=== PATIENT | female | born 1985 | race Hispanic/Latino ===

== ENCOUNTER → 2022-09-01 06:37 | Outpatient (CLI) | payer OTHER, SELFPAY ==
--- NOTE | 2022-09-01 06:40 | DI.US.S_ITS ---
PROCEDURE: US OB <= 14 WEEKS FETUS INDICATIONS: DATING OUTSIDE/PRIOR DATING DATA: Last menstrual period (LMP): 07/03/2022 LMP-based estimated date of delivery (ROSA ELENA): 04/09/2023. First dating scan (date and location): 09/01/2022. Estimated date of delivery (ROSA ELENA) from first dating scan: 04/13/2023 Working ROSA ELENA is 04/09/2023. TECHNIQUE: Real-time scanning was performed of the fetus and maternal pelvic organs, with image documentation. Endovaginal scanning was also performed to better visualize the fetus and maternal ovaries. COMPARISON: None. FINDINGS: Embryo: [place]-rump length measures 1.6 cm corresponding to 8 weeks 0 days. Prominent rhombencephalon is noted. Heart rate: 169 Maternal organs: Ovaries within normal limits, with left corpus luteal cyst. IMPRESSION: 1. 8 week 0 day single living IUP with prominent rhombencephalon. Short-term follow-up ultrasound is recommended to assess for temporal change. We strive to produce accurate, complete, and clear reports of imaging services. To assist us in improving patient care, this report was composed using standard report templates and voice recognition software. Therefore, it may contain abnormal punctuation, insertions and/or omissions. Occasional wrong-word or sound-alike substitutions may occur. Though we review the report and make efforts to correct it, we do recommend that the report be read carefully in proper context to recognize any text inaccuracies. Dictated by: Arben Rosado RRJohn Interpreted: Jas Avila MD on 09/01/2022 at 16:18 Transcribed by: MUMTAZ on 09/01/2022 at 16:20 Approved by: Jas Avila M.D. on 09/01/2022 at 16:28
== END ==
PROVIDERS: Referring Provider Specialist; Visit Provider Specialist
DX: Z36.87 Encounter for antenatal screening for uncertain dates (principal); Z3A.08 8 weeks gestation of pregnancy
CPT/HCPCS: 76801; 76817

== ENCOUNTER → 2022-09-11 12:09 | Outpatient (CLI) | payer OTHER, SELFPAY ==
--- NOTE | 2022-09-11 12:10 | DI.US.S_ITS ---
PROCEDURE: US OB <= 14 WEEKS FETUS INDICATIONS: FOLLOW UP POSSIBLE ABNORMALITY OUTSIDE/PRIOR DATING DATA: Last menstrual period (LMP): 07/03/2022. LMP-based estimated date of delivery (ROSA ELENA): 04/09/2023. First dating scan (date and location): 09/01/2022. Estimated date of delivery (ROSA ELENA) from first dating scan: 04/13/2023. TECHNIQUE: Real-time scanning was performed of the fetus and maternal pelvic organs, with image documentation. Endovaginal scanning was also performed to better visualize the fetus and maternal ovaries. COMPARISON: [facility], , OB <= 14 WEEKS FETUS, 09/01/2022, 7:10. FINDINGS: Embryo: [place]-rump length of 2.5 cm corresponding to an ultrasound gestational age of 9 weeks 2 days. The rhombencephalon appears prominent as before Heart rate: 165 beats per minute Small right perigestational hemorrhage redemonstrated. Maternal organs: Ovaries are unremarkable. IMPRESSION: Single living intrauterine . rhombencephalon appears prominent as before. Developing intracranial anomaly not excludable. Continued attention on follow-up is recommended. We strive to produce accurate, complete, and clear reports of imaging services. To assist us in improving patient care, this report was composed using standard report templates and voice recognition software. Therefore, it may contain abnormal punctuation, insertions and/or omissions. Occasional wrong-word or sound-alike substitutions may occur. Though we review the report and make efforts to correct it, we do recommend that the report be read carefully in proper context to recognize any text inaccuracies. Dictated by: Guillaume Elizabeth M.D. on 09/11/2022 at 14:17 Approved by: Guillaume Elizabeth M.D. on 09/11/2022 at 14:31
== END ==
PROVIDERS: Referring Provider Specialist; Visit Provider Specialist
DX: O35.9XX0 Maternal care for (suspected) fetal abnormality and damage, unspecified, not applicable or unspecified (principal); Z3A.09 9 weeks gestation of pregnancy
CPT/HCPCS: 76801; 76817

== ENCOUNTER → 2022-09-29 09:53 | Outpatient (CLI) | payer OTHER, SELFPAY ==
[2022-09-29 10:21] LABS: Specimen Label NATERA
[2022-09-29 10:38] LABS: Add Manual Diff / Slide Review NO; Basophils Absolute Auto 0 /uL (0-100); Basophils Percent Auto 0.6 % (0-2); Eosinophils Absolute Auto 0 /uL (0-450); Eosinophils Percent Auto 0.6 % (2-4); Hematocrit 35.1 % (36-46); Hemoglobin 12.3 g/dL (12.0-16.0); Lymphocytes Absolute Auto 1400 /uL (1100-4500); Lymphocytes Percent Auto 17.5 % (25-40); Mean Corpuscular Hemoglobin 30.3 PG (26-34); Mean Corpuscular Volume 86.5 fL (80-100); Monocytes Absolute Auto 600 /uL (0-900); Monocytes Percent Auto 7.7 % (3-14); Neutrophils Absolute Auto 5800 /uL (1500-7000); Neutrophils Percent Auto 73.6 % (50-75); Platelet Count 252 X10^3/uL (150-400); Red Blood Cell Count 4.06 X10^6/uL (4.0-5.2); White Blood Cell Count 7.9 X10^3/uL (4.5-11.0)
[2022-09-29 11:31] LABS: Hepatitis B Surface Antigen NEGATIVE s/c (NEGATIVE); Rubella Antibody IgG 85.8 IU/mL (>15)
[2022-09-29 11:48] LABS: HIV 1 & 2 Ab/Ag 4th Gen Combo NEGATIVE (NEGATIVE); Hep C Virus Ab w/Reflex Quant NEGATIVE s/c (NEGATIVE)
[2022-09-30 02:09] LABS: RPR Screen Non Reactive (Non Reactive)
[2022-09-30 09:50] LABS: Varicella IgG Antibody 632 index (Immune >165)
== END ==
PROVIDERS: Referring Provider Specialist; Visit Provider Specialist
DX: Z34.81 Encounter for supervision of other normal pregnancy, first trimester (principal); Z3A.12 12 weeks gestation of pregnancy
CPT/HCPCS: 36415; 80055; 86787; 86803; 86850; 86900; 86901; 87086; 87389

== ENCOUNTER → 2023-01-02 07:57 | Outpatient (CLI) | payer OTHER, SELFPAY ==
[2023-01-02 10:23] LABS: Hematocrit 32.5 % (36-46); Hemoglobin 11.3 g/dL (12.0-16.0)
[2023-01-02 10:43] LABS: GTT (PREG) 1 Hour PP 50gm Dose 154 mg/dL (76-139)
== END ==
PROVIDERS: Referring Provider Student in an Organized Health Care Education/Training Program; Visit Provider Student in an Organized Health Care Education/Training Program
DX: Z34.90 Encounter for supervision of normal pregnancy, unspecified, unspecified trimester (principal); Z3A.24 24 weeks gestation of pregnancy
CPT/HCPCS: 36415; 82950; 85014; 85018

== ENCOUNTER → 2023-01-17 09:54 | Outpatient (CLI) | payer OTHER, SELFPAY ==
[2023-01-17 10:56] LABS: Glucose Fasting Gestational 68 mg/dL (76-95)
[2023-01-17 11:50] LABS: Glucose 1 Hour Gest 103 mg/dL (76-180)
[2023-01-17 14:12] LABS: Glucose 2 Hour Gest 200 mg/dL (76-155)
[2023-01-17 14:14] LABS: Glucose Tol Interp,Gestational INTERPRETATION
[2023-01-17 14:20] LABS: Glucose 3 Hour Gest 81 mg/dL (76-140)
== END ==
PROVIDERS: Family Medicine; PCP Student in an Organized Health Care Education/Training Program; Referring Provider Student in an Organized Health Care Education/Training Program; Visit Provider Student in an Organized Health Care Education/Training Program
DX: Z34.80 Encounter for supervision of other normal pregnancy, unspecified trimester (principal); R73.9 Hyperglycemia, unspecified
CPT/HCPCS: 36415; 82951; 82952

== ENCOUNTER → 2023-03-13 15:09 | Outpatient (CLI) | payer OTHER, SELFPAY ==
[2023-03-14 12:06] LABS: Strep Grp B PCR NEG for Grp B Strep
== END ==
PROVIDERS: PCP Student in an Organized Health Care Education/Training Program; Visit Provider Student in an Organized Health Care Education/Training Program
DX: Z34.80 Encounter for supervision of other normal pregnancy, unspecified trimester (principal)
CPT/HCPCS: 87653

== ENCOUNTER 2023-04-02 07:34 | Inpatient (IN) | payer OTHER, SELFPAY ==
[2023-04-02 08:36] LABS: Add Manual Diff / Slide Review NO; Basophils Absolute Auto 0 /uL (0-100); Basophils Percent Auto 0.3 % (0-2); Eosinophils Absolute Auto 100 /uL (0-450); Eosinophils Percent Auto 0.6 % (2-4); Hematocrit 32.3 % (36-46); Hemoglobin 10.6 g/dL (12.0-16.0); Lymphocytes Absolute Auto 1800 /uL (1100-4500); Lymphocytes Percent Auto 16.4 % (25-40); Mean Corpuscular HGB Conc 32.9 % (30-36); Mean Corpuscular Hemoglobin 26.1 PG (26-34); Mean Corpuscular Volume 79.3 fL (80-100); Monocytes Absolute Auto 600 /uL (0-900); Monocytes Percent Auto 5.7 % (3-14); Neutrophils Absolute Auto 8700 /uL (1500-7000); Platelet Count 244 X10^3/uL (150-400); Red Blood Cell Count 4.07 X10^6/uL (4.0-5.2); Red Cell Distribution Width 15.5 % (11.6-14.8); White Blood Cell Count 11.3 X10^3/uL (4.5-11.0)
[2023-04-02] MEDS: OXYTOCIN PREMIX 30 UNIT/500 ML PLAST..BAG IV (08:53)
[2023-04-02] MEDS: LACTATED RINGERS 1,000 ML 100 ML IV ×3 (08:54→18:56)
[2023-04-02 09:37] VITALS: BP 138/77
--- NOTE | 2023-04-02 10:26 | P.HPOB_ITS ---
OB HPI Date/Time Date of admission: 04/02/23 Date Patient Seen: 04/02/23 History of Present Condition Chief complaint: induction ROSA ELENA Calculator 2 Estimated Delivery Date Method Current WG Current Estimate 04/09/23 LMP (Certain) 39w 0d Other Estimates 04/13/23 Ultrasound #1 38w 3d 04/14/23 Ultrasound #2 38w 2d care: good care Dating criteria OB: LMP confirmed by 1st trimester US Ultrasounds: abnormal US findings Abnormal ultrasound findings: right atrial enlargement, with subsequent normal echocardiogram Obstetrical complications: other (AMA, abnormal sex chromosomes) Indications Indication for induction OB: other Other reason(s) for admission: AMA, abnormal sex chromosomes Preadmission Labs Last OB Lab Results: 2 Blood Type O Positive 04/02/23 08:00 Antibody Screen Negative 04/02/23 08:00 Hematocrit 32.3 % (36-46) L 04/02/23 08:00 Hemoglobin 10.6 g/dL (12.0-16.0) L 04/02/23 08:00 Hepatitis B Surface Antigen Negative s/c (NEGATIVE) 09/29/22 10 :10 Hepatitis C Antibody Negative s/c (NEGATIVE) 09/29/22 10:10 Rubella Antibody 85.8 IU/mL (>15) 09/29/22 10:10 Varicella-Zoster IgG Antibody 632 index (Immune >165) 09/29/22 10:10 Glucose 1 Hour 154 mg/dL (76-139) H 01/02/23 09:00 Group B Streptococcus (PCR) Neg for grp b strep 03/13/23 15:09 Glucose Tolerance Testin hr -: Chlamydia screen: negative and Gonorrhea screen: negative Genetic Screens: Cell-free DNA: Abnormal (abnormal sex chromosomes ) Prior (ies) Past Pregnancies Del. Date GA/Weeks Labor Lgth Wt Sex Route Outcome Anesthesia Place Delv Breastfeed Preg Comp Name 09/09/08 11 spontaneous 08/13/11 40.1 6 6 lb 2 oz Female vaginal live - full ter m epidural [place], [place] 4 months none Mandy 09/09/16 40.4 5 9 lb 2 oz Male vacuum vaginal live - full term epidural [place], [place] 2 years oligohydramni os [place] Delivery Date: 09/09/08 Last Updated by: Ruby Sandra RN required D&C for retained products Evaluation Evaluation Baseline heart rate: 145 Variability: Moderate (11-25) monitor accelerations: Present Monitor Decelerations: Absent Category of Tracing: Reactive Status: Category l Dilation (cm): 1 Effacement (%): 80 Dilation: 1-2 cm Effacement: >/=80% station: -2 Position of cervix: posterior Consistency: soft Cuevas score: 7 Non-invasive Membranes Rupture Test: negative [facility] Medical History (Updated 09/04/22 @ 08:25 by Ruby Snadra RN) Migraine with aura Surgical History (Updated 09/04/22 @ 08:26 by Ruby Sandra RN) [place] teeth extracted (~2020) History of dilation and curettage (~2008) History of appendectomy (~2006) Family History (Updated 09/04/22 @ 08:29 by Ruby Sandra RN) Mother T-cell lymphoma Fibrocystic breast changes Family/Other Hypertension Father Family estrangement Grandmother Dementia Heart disease Grandfather No problems noted. Social History marital status: number of children: 2 household members: spouse and children lives independently: Yes caregiver/support person: Yes housing: house pets and animals: Yes (1 dog) education level: high school occupational status: employed current occupational exposures/hazards: No special sona needs: No travel history: recent ([place]) seatbelt use: always working smoke detector in home: Yes fire extinguisher in home: Yes carbon monox detector in home: Yes firearms in home: No do you feel safe at home: Yes Smoking Status: Never smoker second hand exposure: No alcohol intake: former (1-2/week when not ) substance use type: does not use during the past year weight has: remained stable well-balanced diet: about half the time daily servings fruits/ve-4 caffeine: Yes (AM cup of coffee) Type(s) of exercise: walking frequency: daily duration: 30-45 minutes/day Meds Home Medications and Allergies Home Medications Medication Instructions Recorded Confirmed Type [id number] 400 mcg-om3 35 mg-dha 25 tab PO 09/04/22 03/27/23 History mg-epa 5 mg-fish oil chewable tablet vitamin#30 30 mg iron-10 1 cap PO DAILY #90 caps 11/01/22 04/02/23 Rx mg iron-folic acid 1 mg-omg3 capsule Allergies Allergy/AdvReac Type Severity Reaction Status Date / Time No Known Drug Allergies Allergy Unverified 03/27/23 10:49 Review of Systems Review of Systems ROS: Yes All systems reviewed with the patient and are negative except as otherwise documented Objective Labs 04/02/23 08:00 Labs: Laboratory Results - last 24 hr 04/02/23 08:00 WBC 11.3 H RBC 4.07 Hgb 10.6 L Hct 32.3 L MCV 79.3 L MCH 26.1 MCHC 32.9 RDW 15.5 H Plt Count 244 Neut % (Auto) 77.0 H Lymph % (Auto) 16.4 L [place] % (Auto) 5.7 Eos % (Auto) 0.6 L Baso % (Auto) 0.3 Neut # (Auto) 8700 H Lymph # (Auto) 1800 [place] # (Auto) 600 Eos # (Auto) 100 Baso # (Auto) 0 Blood Type O Positive Antibody Screen Negative Assessment and Plan Assessment and Plan Assessment and Plan narrative: 37 yo here for IOL for AMA. complicated by abnormal sex chromosomes on cFDNA testing and possible enlarged atrium. Met with [facility]. echo normal after possible enlarged atrium. GBS negative. -IOL with pitocin - cord blood collection for karyotype recommended; if abnormal will need referral to Disorders of Sexual Development (DSD) [facility] at [facility] -obtain 3-5 cc blood in lavender (EDTA) tube, label with Baby's Name and Hospital #, send to reference lab ([facility]) for karyotype (aka constitutional karyotype, routine karyotype, peripheral blood karyotype) -can fax results to Crystal Perez MS, [facility], Fax:
--- NOTE | 2023-04-02 13:13 | PM.OBPNLAB ---
Date/Time Date Patient Seen: 04/02/23 Time Patient Seen: 12:15 Pain Control Pain control: tolerating well Pelvic Exam Dilation (cm): 2 Effacement (%): 80 station: -2 Amniotic membrane status: Intact Contractions Contractions on admission: none Monitor mode: External Pitocin rate (mU/min): 14 Contraction frequency (min): 2 Contraction duration (min): 1 Contraction pattern: Regular Contraction intensity: Moderate Status status: Category l Heart Rate Baseline: 145 Monitor Accelerations: Present Monitor Decelerations: Absent Monitor Variability: Moderate Assessment and Plan Assessment: induction ongoing Plan: continuous present management
--- NOTE | 2023-04-02 17:25 | PM.OBPNLAB ---
Date/Time Date Patient Seen: 04/02/23 Time Patient Seen: 17:00 Pain Control Pain control: tolerating well Comments: Planning for epidural now Pelvic Exam Dilation (cm): 6 Effacement (%): 100 station: -2 Amniotic membrane status: Ruptured Comments: AROM at last check at 3pm. Contractions Monitor mode: External Pitocin rate (mU/min): 18 Contraction frequency (min): 2 Contraction pattern: Regular Contraction intensity: Moderate Status status: Category l Monitor Accelerations: Present Monitor Decelerations: Early Monitor Variability: Moderate Assessment and Plan Assessment: induction ongoing Plan: continuous present management Comments: anticipate in next few hours getting epidural now
--- NOTE | 2023-04-02 18:34 | PM.OBPNLAB ---
Date/Time Date Patient Seen: 04/02/23 Time Patient Seen: 18:30 Pain Control Pain control: tolerating well and epidural Pelvic Exam Dilation (cm): 8 Effacement (%): 100 station: -1 Amniotic membrane status: Ruptured Contractions Monitor mode: External Contraction frequency (min): 2 Contraction pattern: Regular Contraction intensity: Moderate Status status: Category ll Heart Rate Baseline: 145 Monitor Accelerations: Present Monitor Decelerations: Late Monitor Variability: Moderate Assessment and Plan Assessment: induction ongoing Plan: continuous present management Comments: Called to bedside for category 2 tracing, moderate variability with late decelerations. Anesthesia at bedside, ephedrine given for hypotension. Fluid bolus given, oxygen on patient, position changes initiated, pitocin discontinued. Good recovery to category 1 tracing. SVE 8/100/-1. -plan for
--- NOTE | 2023-04-02 18:35 | PM.AN.REGBLK ---
Regional Block Pre-procedure Procedure: Continuous Lumbar Epidural for L&D Attending OB provider: Kimberly Mcgrath PMH/ROS narrative: 39W 37yo female with history of 1 miscarriage s/p D&C. Hx: No personal or family history of anesthesia problems. PSH/Anesthesia history narrative: D&C, [place] ASA Class: II Labs: Hct 32.3 % (36-46) L 04/02/23 08:00 Plt Count 244 X10^3/uL (150-400) 04/02/23 08:00 Medications: Current Medications Generic Name Dose Route Start Last Admin Trade Name Freq PRN Reason Stop Dose Admin Calcium Carbonate 1,000 mg 04/02/23 08:02 Calcium Carbonate 500 Mg Tab PO Q4HR PRN Dyspepsia Carboprost Tromethamine 250 mcg 04/02/23 08:02 Carboprost 250 Mcg/Ml Ampul IM Q90M PRN Bleeding Diphenhydramine HCl 25 mg 04/02/23 18:07 Diphenhydramine 50 Mg/Ml Vial IV Q10M PRN Pruritis Ephedrine Sulfate 5 mg 04/02/23 18:07 Ephedrine 50 Mg/Ml Vial IV Q5M PRN Blood pressure decrease more than 20% of baseline. Fentanyl 50 mcg 04/02/23 08:02 Fentanyl 100 Mcg/2 Ml Inj IV Q1H PRN Pain, Moderate (4-6) Oxytocin/Lactated Ringer's 30 unit in 500 mls @ 200 mls/hr 04/02/23 08:02 Oxytocin Premix IV CONT PRN Bleeding Protocol Tranexamic Acid 1,000 mg/ 100 mls @ 200 mls/hr 04/02/23 08:02 Sodium Chloride IV NOW PRN Bleeding Lactated Ringer's 1,000 mls @ 100 mls/hr 04/02/23 08:15 04/02/23 08:54 Lactated Ringers IV 100 mls/hr CONT SAMI Administration Lactated Ringer's 1,000 mls @ 100 mls/hr 04/02/23 08:15 Lactated Ringers IV CONT SAMI Oxytocin/Lactated Ringer's 30 unit in 500 mls @ 2 mls/hr 04/02/23 09:00 04/02/23 08:53 Oxytocin Premix IV 2 milliunit/min TITRATE SAMI 2 mls/hr Administration Protocol 2 MILLIUNIT/MIN FENT 2MCG/ML BUPIV 0.125% EPI 200 mcg in 100 mls @ 6 mls/hr 04/02/23 18:15 Fentanyl/Bupiv/Ns 2mcg/Ml - 0.125% EPIDURAL CONT SAMI Lidocaine HCl 20 ml 04/02/23 08:02 Lidocaine 1% 20 Ml INJ INTRA-OP PRN Post Delivery Methylergonovine Maleate 0.2 mg 04/02/23 08:02 Methylergonovine 0.2 Mg Tablet PO Q6HR PRN Heavy Bleeding Methylergonovine Maleate 0.2 mg 04/02/23 08:02 Methylergonovine 0.2 Mg/Ml Vial IM NOW PRN Bleeding Misoprostol 800 mcg 04/02/23 08:02 Misoprostol 200 Mcg Tablet [place] NOW PRN Bleeding Misoprostol 400 mcg 04/02/23 08:02 Misoprostol 200 Mcg Tablet SL NOW PRN Bleeding Nalbuphine HCl 2.5 mg 04/02/23 18:07 Nalbuphine 20 Mg/Ml Ampul IV Q10M PRN Pruritis Naloxone HCl 0.2 mg 04/02/23 08:02 Naloxone 0.4 Mg/Ml Vial IV Q2MIN PRN Opiate Reversal Ondansetron HCl 4 mg 04/02/23 08:02 Ondansetron 4 Mg/2 Ml Inj IV Q4HR PRN Nausea And Vomiting Oxytocin 10 unit 04/02/23 08:02 Oxytocin 10 Unit/Ml Vial IM NOW PRN Bleeding Allergies: Allergies Allergy/AdvReac Type Severity Reaction Status Date / Time No Known Drug Allergies Allergy Unverified 03/27/23 10:49 Procedure Insertion date: 04/02/23 Insertion time: 17:37 Prep/Local: betadine x3 and 1% lidocaine Interspace: L3-L4 Patient position: sitting Needle: 18 gauge María Loss of resistance with: saline (+Air) VAL at (cm): 7 Catheter placed at SKIN (cm): 14 Catheter in SPACE (cm): 7 Insertion: No CSF, No Blood, No Paresthesia with insertion, No Paresthesia with injection and No Test dose reaction Initial Medications TEST DOSE time: 17:39 TEST DOSE: 1.5% lidocaine with epinephrine 1:200k (mL): 3 BOLUS DOSE time: 17:40 BOLUS DOSE (mL): 6 BOLUS DOSE med: other (2% Lidocaine) Infusion INFUSION: 0.125% bupivacaine and with fentanyl 2 mcg/mL Initial rate (mL/hr): 6 Subsequent interventions: Continuous rate: 6ml/hr, PCEA dose: 3ml, Lockout: 15ml, 1hr limit: 18ml. Mild hypotension with distress: Phenyephrine bolus. Post-procedure Anesthesia date START: 04/02/23 Anesthesia time START: 17:36 Anesthesia date END: 04/02/23 Anesthesia time END: 22:40 Post-procedure Anesthesia Assessment: Yes CV function: HR/BP stable, Yes Resp function: RR/sat/airway adequate, Yes Post-op hydration adequate, Yes Pain control adequate, Yes Nausea & vomiting absent, Yes Temperature > 36 C and Yes Mental status appropriate
[2023-04-02] MEDS: FENT 2MCG/ML BUPIV 0.125% EPI 200 MCG/100 ML PLAST..BAG 6 MCG EPIDURAL (18:58)
--- NOTE | 2023-04-02 23:14 | PM.OBPRVD ---
Events: Labor Induction, Labor Augmentation and Other (AMA, abnormal chromosomes on cFDNA) Labor & Delivery Delivery date: 04/02/23 Intrapartal Events: Deceleration Cervical ripening method: none Induction method: per pitocin protocol Delivery augmentation: rupture of membranes Delivery monitor: external FHT and external uterine Route of delivery: L&D Laceration Description: Periurethral - 2nd Degree Delivery repair: vicryl Estimated blood loss (mL): 350 Anesthesia Type: Epidural Narrative: with IOL for AMA. complicated by abnormal sex chromosomes on cFDNA testing. GBS negative. Induced with pitocin and AROM. Patient was found to be complete around 9:30 and pushed for over an hour. She delivered over an intact perineum. There was no shoulder dystocia. 5cc of cord blood was collected in a lavender tube for karyotype testing. Placenta delivered spontaneously and pitocin bolus was started. There was a true knot in the cord and a nuchal and body cord present during delivery. There was a second degree perineal laceration repaired with 3-0 vicryl suture. Fundus was firm with external massage. Plan for aftercare: Routine care
[2023-04-03] MEDS: IBUPROFEN 600 MG TABLET PO ×2 (00:12→06:27)
[2023-04-03] MEDS: DERMOPLAST SPRAY 20% 60 ML 1 SPRAY TOP (00:12)
[2023-04-03] MEDS: ACETAMINOPHEN 325 MG TABLET 650 MG PO ×2 (00:12→06:27)
[2023-04-03] MEDS: PRENATAL VIT,CALC/IRON/FOLIC 1 TABLET 1 TAB PO (10:31)
--- NOTE | 2023-04-03 13:00 | PM.OBDS.1 ---
Discharge Providers Provider Date of admission: 04/02/23 07:34 Discharge Date: 04/03/23 Primary care physician: Kimberly Mcgrath MD Consults: 04/02/23 08:03 Consult to Anesthesiology Urgent Comment: Consulting Provider: Anesthesiologist Reason for consultation: Epidural 04/03/23 23:22 Consult to Mobile Equipment Servicer Routine Comment: Discharge provider: Kimberly Mcgrath MD Summary Hospital Course Date Patient Seen: 04/03/23 Time Patient Seen: 12:15 Diagnoses: of term Hospital Course: 37 yo at 39w0d admitted for IOL for AMA. complicated by abnormal sex chromosomes on cFDNA testing and possible enlarged atrium. Met with [facility]. echo normal after possible enlarged atrium. GBS negative. Labor induced with pitocin, AROM. Delivery uncomplicated, second degree perineal laceration repaired. True knot in umbilical cord. Patient recovering well. initiated without issues. Peripartum Data Delivery Method: Natural Vaginal Laceration Description: Periurethral - 2nd Degree complications: none Status at Discharge Cognitive/behavioral status at discharge: oriented Functional status at discharge: independent ambulation Overall status at discharge: patient is back to baseline Time Spent with Patient Time attestation: Total time spent providing and/or coordinating discharge services: Time spent: Greater than 30 minutes Objective Labs 04/02/23 08:00 Exam Narrative Exam Narrative: NAD, breathing easily. Fundus at umbilicus. Discharge Plan Discharge Plan Patient Disposition: Home Discharge orders & Medications Prescriptions: Continued [id number] oil 400 mcg-35 mg -25 mg-5 mg tablet,chewable PO PNV #[id number] 30 mg iron-10 mg iron-1 mg capsule 1 cap PO DAILY Qty: 90 3RF Follow up/Referrals: Kimberly Mcgrath MD [Primary Care Provider] - 6 Weeks (Follow up on 05/07/2023 @ 1130am) Visit Report/Discharge Packet Stand Alone Forms: Patient Portal/API, Stroke Signs & Symptoms Discharge Data Primary Care Provider: Kimberly Mcgrath
[2023-04-03 17:29] VITALS: BP 138/77
== END 2023-04-03 18:19 | disposition home or self-care (01) | DRG 807 ==
PROVIDERS: Admitting Provider Student in an Organized Health Care Education/Training Program; PCP Student in an Organized Health Care Education/Training Program; Referring Provider Student in an Organized Health Care Education/Training Program; Visit Provider Student in an Organized Health Care Education/Training Program
DX: O76 Abnormality in fetal heart rate and rhythm complicating labor and delivery (principal); Z37.0 Single live birth; O70.1 Second degree perineal laceration during delivery; Z3A.39 39 weeks gestation of pregnancy
CPT/HCPCS: 36415; 59050; 59400; 85025; 86850; 86900; 86901; G0379; J2590